=== PATIENT | male | born 1995 | race Caucasian/White ===

== ENCOUNTER 2018-12-28 04:24 | Emergency (ER) | payer OTHER ==
[2018-12-28] MEDS ORDERED: Sodium Chloride 0.9% 1,000 ML IV ONE (04:32)
--- NOTE | 2018-12-28 04:32 | EDM.PDOC ---
ED HPI GENERAL MEDICAL PROBLEM - General Chief Complaint: Chest Pain Stated Complaint: CHEST PAIN Time Seen by Provider: 12/28/18 04:30 - History of Present Illness INITIAL COMMENTS - FREE TEXT/NARRATIVE: HISTORY AND PHYSICAL: History of present illness: Patient 23-year-old white male who no significant past medical history presents with an episode of chest pain and near-syncope states he got up to use the restroom felt dizzy at that time and collapsed to his knees he did not lose consciousness was no associated trauma he states his pain is left-sided without associated palpitations diaphoresis nausea vomiting denies drugs. Review of systems: As per history of present illness and below otherwise all systems reviewed and negative. Past medical history: As per history of present illness and as reviewed below otherwise noncontributory. Surgical history: As per history of present illness and as reviewed below otherwise noncontributory. Social history: No reported history of drug or alcohol abuse. Family history: As per history of present illness and as reviewed below otherwise noncontributory. Physical exam: HEENT: Atraumatic, normocephalic, pupils reactive, negative for conjunctival pallor or scleral icterus, mucous membranes moist, throat clear, neck supple, nontender, trachea midline. Lungs: Clear to auscultation, breath sounds equal bilaterally, chest nontender. Heart: S1S2, regular, negative for clicks, rubs, or JVD. Abdomen: Soft, nondistended, nontender. Negative for masses or hepatosplenomegaly. Negative for costovertebral tenderness. Pelvis: Stable nontender. Genitourinary: Deferred. Rectal: Deferred. Extremities: Atraumatic, negative for cords or calf pain. Neurovascular unremarkable. Neuro: Awake, alert, oriented. Cranial nerves II through XII unremarkable. Cerebellum unremarkable. Motor and sensory unremarkable throughout. Exam nonfocal. Diagnostics: CBC CMP troponin PT/INR chest x-ray EKG Therapeutics: Saline 1 L bolus Impression: # 1 atypical chest pain #2 probable vasovagal episode Definitive disposition and diagnosis as appropriate pending reevaluation and review of above. - Related Data Allergies Allergy/AdvReac Type Severity Reaction Status Date / Time No Known Allergies Allergy Verified 12/28/18 04:27 Home Meds: Home Meds . [No Known Home Meds] 12/28/18 [History] ED ROS GENERAL - Review of Systems Review Of Systems: ROS reveals no pertinent complaints other than HPI. ED EXAM, GENERAL - Physical Exam Exam: See Below (See dictation) Course - Vital Signs Last Recorded V/S: Last Vital Signs Temp 36.7 C 12/28/18 04:28 Pulse 72 12/28/18 05:04 Resp 14 12/28/18 05:04 BP 107/68 12/28/18 05:04 Pulse Ox 98 12/28/18 05:04 - Orders/Labs/Meds Orders: Active Orders 24 hr Category Date Time Status Cardiac Monitoring [RC] . DIRECTED Care 12/28/18 04:32 Active EKG Documentation Completion [RC] STAT Care 12/28/18 04:32 Active UA RFX SHAQUILLE AND CULT IF INDIC [URIN] Stat Lab 12/28/18 04:32 Ordered Sodium Chloride 0.9% [Normal Saline] 1,000 ml Med 12/28/18 04:32 Active IV BOLUS Saline Lock Insert [OM.PC] Stat Oth 12/28/18 04:32 Ordered Medication Orders Sodium Chloride (Normal Saline) 1,000 mls @ 999 mls/hr IV BOLUS ONE Stop: 12/28/18 05:32 Last Admin: 12/28/18 04:35 Dose: 999 mls/hr Labs: Laboratory Tests 12/28/18 12/28/18 12/28/18 Range/Units 04:27 04:27 04:27 WBC 7.46 (4.0-11.0) K/uL RBC 5.23 (4.50-5.90) M/uL Hgb 16.4 (13.0-17.0) g/dL Hct 47.7 (38.0-50.0) % MCV 91.2 (80.0-98.0) fL MCH 31.4 (27.0-32.0) pg MCHC 34.4 (31.0-37.0) g/dL RDW Std Deviation 43.5 (28.0-62.0) fl RDW Coeff of Charley 13 (11.0-15.0) % Plt Count 293 (150-400) K/uL MPV 10.10 (7.40-12.00) fL Neut % (Auto) 46.6 L (48.0-80.0) % Lymph % (Auto) 44.9 H (16.0-40.0) % Fountain % (Auto) 7.0 (0.0-15.0) % Eos % (Auto) 1.1 (0.0-7.0) % Baso % (Auto) 0.4 (0.0-1.5) % Neut # (Auto) 3.5 (1.4-5.7) K/uL Lymph # (Auto) 3.4 H (0.6-2.4) K/uL Fountain # (Auto) 0.5 (0.0-0.8) K/uL Eos # (Auto) 0.1 (0.0-0.7) K/uL Baso # (Auto) 0.0 (0.0-0.1) K/uL Nucleated RBC % 0.0 /100WBC Nucleated RBCs # 0 K/uL INR 0.95 Sodium 142 (136-148) mmol/L Potassium 3.4 L (3.5-5.1) mmol/L Chloride 106 (98-107) mmol/L Carbon Dioxide 26.1 (21.0-32.0) mmol/L BUN 9 (7.0-18.0) mg/dL Creatinine 1.1 (0.8-1.3) mg/dL Est Cr Clr Drug Dosing 116.02 mL/min Estimated GFR (MDRD) > 60.0 ml/min Glucose 176 H (74-106) mg/dL Calcium 9.0 (8.5-10.1) mg/dL Total Bilirubin 0.3 (0.2-1.0) mg/dL AST 15 (15-37) IU/L ALT 29 (14-63) IU/L Alkaline Phosphatase 75 (46-116) U/L Troponin I < 0.050 (0.000-0.056) ng/mL Total Protein 7.6 (6.4-8.2) g/dL Albumin 4.2 (3.4-5.0) g/dL Globulin 3.4 (2.6-4.0) g/dL Albumin/Globulin Ratio 1.2 (0.9-1.6) Meds: Medications Generic Name Dose Route Start Last Admin Trade Name Freq PRN Reason Stop Dose Admin Sodium Chloride 1,000 mls @ 999 mls/hr 12/28/18 04:32 12/28/18 04:35 Normal Saline IV 12/28/18 05:32 999 mls/hr BOLUS ONE Administration Departure - Departure Time of Disposition: 05:24 Disposition: Home, Self-Care 01 Condition: Good Clinical Impression: Atypical chest pain, Near syncope - Discharge Information Forms: ED Department Discharge Additional Instructions: The following information is given to patients seen in the emergency department who are being discharged to home. This information is to outline your options for follow-up care. We provide all patients seen in our emergency department with a follow-up referral. The need for follow-up, as well as the timing and circumstances, are variable depending upon the specifics of your emergency department visit. If you don't have a primary care physician on staff, we will provide you with a referral. We always advise you to contact your personal physician following an emergency department visit to inform them of the circumstance of the visit and for follow-up with them and/or the need for any referrals to a consulting specialist. The emergency department will also refer you to a specialist when appropriate. This referral assures that you have the opportunity for followup care with a specialist. All of these measure are taken in an effort to provide you with optimal care, which includes your followup. Under all circumstances we always encourage you to contact your private physician who remains a resource for coordinating your care. When calling for followup care, please make the office aware that this follow-up is from your recent emergency room visit. If for any reason you are refused follow-up, please contact the [facility] emergency department at and asked to speak to the emergency department charge nurse. Push fluids follow up primary medical doctor as needed as discussed return as needed as discussed - My Orders Last 24 Hours: My Active Orders 12/28/18 04:32 Cardiac Monitoring [RC] . DIRECTED EKG Documentation Completion [RC] STAT UA RFX SHAQUILLE AND CULT IF INDIC [URIN] Stat Sodium Chloride 0.9% [Normal Saline] 1,000 ml IV BOLUS Saline Lock Insert [OM.PC] Stat - Assessment/Plan Last 24 Hours: My Active Orders 12/28/18 04:32 Cardiac Monitoring [RC] . DIRECTED EKG Documentation Completion [RC] STAT UA RFX SHAQUILLE AND CULT IF INDIC [URIN] Stat Sodium Chloride 0.9% [Normal Saline] 1,000 ml IV BOLUS Saline Lock Insert [OM.PC] Stat
--- NOTE | 2018-12-28 04:58 | CR ---
INDICATION: Chest pain TECHNIQUE: Chest 1 view COMPARISON: None FINDINGS: Cardiovascular and mediastinum: Heart size and vasculature are normal in caliber and appearance. Lungs and pleural spaces: Lungs are clear. No sign of infiltrate or mass. No sign of pleural effusion. No pneumothorax. Bones and soft tissues: No significant findings. IMPRESSION: Unremarkable single view chest. Dictated by Damian Carlton MD @ Dec 28 2018 4:55AM Signed by Dr. Damian Carlton @ Dec 28 2018 4:57AM
[2018-12-28 05:05] LABS: BLOOD UREA NITROGEN,BUN 9 mg/dL (7.0-18.0); CARBON DIOXIDE,CO2 26.1 mmol/L (21.0-32.0); CHLORIDE,CL 106 mmol/L (98-107); GLUCOSE RANDOM 176 mg/dL (74-106); POTASSIUM,K 3.4 mmol/L (3.5-5.1); SODIUM,NA 142 mmol/L (136-148)
== END 2018-12-28 05:42 | disposition home or self-care (01) ==
LOC: MW.ED 04:24
DX: R07.89 Other chest pain (principal); R55 Syncope and collapse
CPT/HCPCS: 36415; 71045; 80053; 84484; 85025; 85610; 93005; 96360; 99285; J7040; 99284